=== PATIENT | female | born 1995 | race Caucasian/White ===

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

== ENCOUNTER → 2017-12-27 | Outpatient (REF) | payer OTHER ==
[2017-12-27 13:24] LABS: HEMATOCRIT 40.9 % (36.0-47.0); HEMOGLOBIN 13.7 g/dl (12.0-15.5); MEAN CORPUSCULAR HEMOGLOBIN 28.1 pg (27.0-33.0); MEAN CORPUSCULAR HGB CONC 33.5 g/dl (32.0-36.5); PLATELET COUNT, AUTOMATED 385 10^3/uL (150-450); RED BLOOD COUNT 4.87 10^6/uL (4.00-5.40); RED CELL DISTRIBUTION WIDTH 12.4 % (11.5-14.5); WHITE BLOOD COUNT 7.6 10^3/uL (4.0-10.0)
[2017-12-27 14:01] LABS: HCG, SERUM QUANTITATIVE 14901 MIU/ML
[2017-12-28 09:10] LABS: RUBELLA IgG QUALITATIVE EQUIVOCAL (IMMUNE)
[2017-12-28 09:18] LABS: HBsAg Prenatal NEGATIVE (NEGATIVE)
[2017-12-28 09:40] LABS: HEPATITIS C VIRUS ABY INDEX 0.1 INDEX (<0.8)
[2017-12-28 09:41] LABS: HIV 1&2 SCREEN CENTAUR NEGATIVE (NEGATIVE)
== END ==
LOC: M LAB REF 13:00
DX: O36.80X0 Pregnancy with inconclusive fetal viability, not applicable or unspecified (principal); Z3A.00 Weeks of gestation of pregnancy not specified
CPT/HCPCS: 86762

== ENCOUNTER → 2018-01-25 | Outpatient (REF) | payer OTHER ==
[2018-01-25 16:15] LABS: CHLAMYDIA DNA AMPLIFICATION NEGATIVE (NEGATIVE); GC DNA AMPLIFICATION NEGATIVE (NEGATIVE)
== END ==
LOC: M LAB REF 13:11
DX: Z34.81 Encounter for supervision of other normal pregnancy, first trimester (principal)

== ENCOUNTER 2018-02-24 09:04 | Emergency (ER) | payer OTHER ==
[2018-02-24] MEDS: METOCLOPRAMIDE INJ 10MG/2ML VIAL (J2765) IV (09:53)
[2018-02-24] MEDS: NS 1,000 ML IV (09:53)
[2018-02-24 10:19] LABS: AMORPHOUS SEDIMENT RFX SMALL (NEGATIVE); KETONE, URINE AUTO RFX TRACE mg/dL (NEGATIVE); LEUKOCYTE ESTERASE UR AUTO RFX 3+ (NEGATIVE); MUCUS, URINE RFX SMALL (NEGATIVE); NITRITE, URINE AUTO RFX NEGATIVE (NEGATIVE); RBC, URINE AUTO RFX 0 /HPF (0-3); SPECIFIC GRAVITY UR AUTO RFX 1.025 (1.002-1.035); SQUAM EPITHELIAL CELL UR AURFX 56 /HPF (0-6); WBC, URINE AUTO RFX 33 /HPF (0-3)
== END 2018-02-24 11:17 | disposition home or self-care (01) ==
LOC: M ED 09:04
DX: O23.42 Unspecified infection of urinary tract in pregnancy, second trimester (principal); O99.352 Diseases of the nervous system complicating pregnancy, second trimester; R51 Headache; O21.9 Vomiting of pregnancy, unspecified; Z87.891 Personal history of nicotine dependence; Z3A.14 14 weeks gestation of pregnancy
CPT/HCPCS: J2765

== ENCOUNTER 2018-05-04 23:18 | Emergency (ER) | payer OTHER ==
[~2018-05-04] VITALS: Ht 172.7 cm; Wt 104.5 kg
[~2018-05-04 23:18] MED LIST: KEFL500C17 PO; KETO10TAB PO; REGL10TA6 PO; ZOFR4TAB14 PO
[2018-05-05 01:19] LABS: INFLUENZA A AMPLIFICATION NEGATIVE (NEGATIVE); INFLUENZA B AMPLIFICATION NEGATIVE (NEGATIVE)
[2018-05-05 01:34] VITALS: BP 132/65
== END 2018-05-05 01:44 | disposition home or self-care (01) ==
LOC: M ED 23:18
DX: O99.512 Diseases of the respiratory system complicating pregnancy, second trimester (principal); J02.8 Acute pharyngitis due to other specified organisms; Z3A.24 24 weeks gestation of pregnancy

== ENCOUNTER → 2018-06-19 | Outpatient (CLI) | payer OTHER ==
[2018-06-19 20:28] LABS: HEMATOCRIT 39.4 % (36.0-47.0); HEMOGLOBIN 12.6 g/dl (12.0-15.5); MEAN CORPUSCULAR HEMOGLOBIN 26.5 pg (27.0-33.0); MEAN CORPUSCULAR VOLUME 82.8 fl (80.0-96.0); PLATELET COUNT, AUTOMATED 367 10^3/uL (150-450); RED BLOOD COUNT 4.76 10^6/uL (4.00-5.40); WHITE BLOOD COUNT 12.1 10^3/uL (4.0-10.0)
== END ==
LOC: M LRY 15:09
PROVIDERS: ATTEND Obstetrics & Gynecology
DX: Z36.89 Encounter for other specified antenatal screening (principal)

== ENCOUNTER 2018-07-18 15:47 | Outpatient (CLI) | payer OTHER ==
[~2018-07-18] VITALS: Ht 172.7 cm; Wt 117.5 kg
[~2018-07-18 15:47] MED LIST changes: -PRENTAB9 PO
[2018-07-18 16:20] VITALS: BP 134/73
[2018-07-18] MEDS ORDERED: PRENTAB9 PO (16:23)
[2018-07-18 18:24] VITALS: BP 134/64
== END 2018-07-18 19:08 | disposition home or self-care (01) ==
LOC: M LDO 15:47
PROVIDERS: ATTEND Obstetrics & Gynecology
DX: O26.893 Other specified pregnancy related conditions, third trimester (principal); M54.5 Low back pain; Z3A.35 35 weeks gestation of pregnancy

== ENCOUNTER → 2018-07-18 | Outpatient (REF) | payer OTHER ==
[~2018-07-18] MED LIST changes: +PRENTAB9 PO
== END ==
LOC: M LAB REF 14:14
PROVIDERS: ATTEND Nurse Practitioner Women's Health
DX: Z34.83 Encounter for supervision of other normal pregnancy, third trimester (principal); Z36.85 Encounter for antenatal screening for Streptococcus B

== ENCOUNTER 2018-08-16 14:26 | Inpatient (IN) | payer OTHER ==
[~2018-08-16] VITALS: Ht 172.7 cm; Wt 118.7 kg
[2018-08-16] VITALS (33 sets, daily range): BP systolic 125–175; BP diastolic 56–95
[~2018-08-16 14:26] MED LIST changes: +PRENTAB9 PO
[2018-08-16 15:54] LABS: HEMATOCRIT 44.3 % (36.0-47.0); HEMOGLOBIN 14.1 g/dl (12.0-15.5); MEAN CORPUSCULAR HEMOGLOBIN 26.1 pg (27.0-33.0); MEAN CORPUSCULAR HGB CONC 31.8 g/dl (32.0-36.5); MEAN CORPUSCULAR VOLUME 81.9 fl (80.0-96.0); PLATELET COUNT, AUTOMATED 280 10^3/uL (150-450); RED BLOOD COUNT 5.41 10^6/uL (4.00-5.40); WHITE BLOOD COUNT 11.4 10^3/uL (4.0-10.0)
[2018-08-16] MEDS ORDERED: LACTATED RINGER'S 1000 ML IV STA (15:57)
[2018-08-16] MEDS: LR 1,000 ML IV SCH ×2 (16:31→18:32)
[2018-08-16 16:40] LABS: ALT/SGPT 16 U/L (12-78); BILIRUBIN,TOTAL 0.3 MG/DL (0.2-1.0); CREATININE FOR GFR 0.69 MG/DL (0.55-1.30); GLOMERULAR FILTRATION RATE > 60.0 (>60); LDH LACTATE DEHYDROGENASE 134 U/L (84-246); URIC ACID 6.5 MG/DL (2.6-6.0)
[2018-08-16] MEDS ORDERED: OXYTOCIN 30 UNITS IN 0.9% NaCl 500ML IV BAG (J2590) As Ordered ONE (20:12)
[2018-08-16] MEDS ORDERED: OXYTOCIN DRIP 30 UNITS in APPROPRIATE DILUENT 1 EA IV SCH (20:45)
[2018-08-16] MEDS ORDERED: FENTANYL 2MCG/ML ROPIVACAINE 0.2% IN 0.9% NACL 100ML IVBAG As Ordered ONE (21:29)
[2018-08-16] MEDS ORDERED: EPIDURAL/PCA KEYS XX PRN (22:45)
[2018-08-16] MEDS ORDERED: LACTATED RINGER'S 1000 ML IV PRN (22:45)
[2018-08-16] MEDS ORDERED: NALOXONE INJ 0.4 MG/1 ML VIAL (J2310) IV PRN (22:45)
[2018-08-16] MEDS ORDERED: EPIDURAL COMMENT XX SCH (22:45)
[2018-08-16] MEDS ORDERED: REFRIGERATOR IV KEYS XX PRN (22:45)
[2018-08-16] MEDS ORDERED: FENTANYL/ROPIVACAINE/NACL BAG 100 ML EPIDURAL SCH (22:45)
[2018-08-16] MEDS ORDERED: ONDANSETRON 4MG/2ML VIAL (J2405) IV PRN (22:45)
[2018-08-16] MEDS ORDERED: diphenhydrAMINE INJ 50MG/ML VIAL (J1200) IV PRN (22:45)
[2018-08-16] MEDS ORDERED: ePHEDrine SULFATE 25 MG/5 ML(5MG/ML) SYRINGE IV PRN (22:45)
[2018-08-17] VITALS (18 sets, daily range): BP systolic 122–183; BP diastolic 58–86
[2018-08-17] MEDS ORDERED: fentaNYL 100 MCG/2 ML INJECTION (J3010) As Ordered ONE (01:01)
[2018-08-17 03:17] LABS: CORD GAS ABE V -6.7; CORD GAS HCO3 V 18.5 MEQ/L; CORD GAS O2 SAT V 81.9 %; CORD GAS PCO2 V 36.4 mmHg; CORD GAS PH V 7.323 UNITS; CORD GAS PO2 V 38.7 mmHg; CORD GAS SBC V 18.8 MEQ/L; CORD GAS TCO2 V 19.6 MEQ/L
[2018-08-17 03:20] LABS: CORD GAS ABE A -6.2; CORD GAS HCO3 A 20.3 MEQ/L; CORD GAS O2 SAT A 67.1 %; CORD GAS PCO2 A 43.3 mmHg; CORD GAS PH A 7.288 UNITS; CORD GAS PO2 A 28.7 mmHg; CORD GAS SBC A 18.7 MEQ/L; CORD GAS TCO2 A 21.6 MEQ/L
[2018-08-17] MEDS ORDERED: OXYTOCIN DRIP 30 UNITS in APPROPRIATE DILUENT 1 EA IV SCH (03:21)
[2018-08-17] MEDS ORDERED: RHOGAM 300 MCG (1500 IU) INJ (J2790) IM SCH (03:30)
[2018-08-17] MEDS ORDERED: DIBUCAINE 1% OINTMENT 30GM TOP PRN (03:30)
[2018-08-17] MEDS ORDERED: ANUSOL HC CREAM 30GM TOP PRN (03:30)
[2018-08-17] MEDS ORDERED: METHYLERGONOVINE MALEATE 0.2 MG TAB PO PRN (03:30)
[2018-08-17] MEDS ORDERED: MEASLES,MUMPS,RUBELLA VACCINE INJ (MMR-II) (90707) SC SCH (03:30)
[2018-08-17] MEDS ORDERED: DOCUSATE SODIUM 100 MG CAP PO PRN (03:30)
[2018-08-17] MEDS: ACETAMINOPHEN 500 MG TAB PO PRN ×2 (05:30→11:54)
[2018-08-17] MEDS: IBUPROFEN 800 MG TAB PO PRN ×2 (05:30→21:09)
--- NOTE | 2018-08-17 07:33 | HPE ---
DATE OF ADMISSION: 08/16/2018 Yakelin is a 23-year-old female, 2, para 0-0-1-0 with an expected date of confinement (EDC) of 08/22/2018, estimated gestational age (EGA) of 39-1/7 weeks gestation who presented to the office with complaints of contractions. Upon evaluation, she was found to be in active labor. At this point, a decision was made for admission. Her record reviewed which was essentially unremarkable. She initiated care at approximately 8 weeks gestation. LABS: Blood type is O positive. Rubella immune. Hepatitis negative. HIV negative. GC and chlamydia negative, 1-hour sugar testing was within normal limits. Her GBS is negative. PAST MEDICAL HISTORY: Significant for migraines. PAST SURGICAL HISTORY: Denies. SOCIAL HISTORY: The patient is single. Denies any alcohol, drugs or cigarette smoking. She is however a former smoker and has smoked in the past a half a pack of cigarettes per day. FAMILY HISTORY: Significant for stroke. MEDICATIONS: vitamin. ALLERGIES: No known drug allergies. PHYSICAL EXAMINATION: Obese female in no acute distress. Abdomen: Soft, nontender, nondistended. Extremities: No clubbing, cyanosis or edema. Vaginal Exam: 6 cm dilated, 100%, fetus at -2 station in vertex position. Category one tracing with contractions every 4-5 minutes. ASSESSMENT: 1. Intrauterine at 39 and 1/7 weeks gestation in active labor. 2. GBS negative. PLAN: Admit to labor and delivery. Routine labs sent. Pain management discussed. The patient opts for an epidural. Will continue to monitor. Anticipate delivery.
--- NOTE | 2018-08-17 07:38 | DN ---
DATE OF SERVICE: 08/17/2018 Yakelin is a 23-year-old female 2, para 0-0-1-0 who was admitted at 39-1/7 weeks gestation in active labor. She underwent artificial rupture of membrane, progressed to fully dilated. Delivered a live female in left occiput anterior position. Apgars 9 and 9, birthweight 7 pounds 11 ounces. Placenta delivered spontaneously intact. Three-vessel cord. First-degree midline perineal laceration noted which was repaired using #2-0 chromic. Estimated blood loss 300 mL. Both mother and baby in stable condition.
[2018-08-17] MEDS: PRENATAL VITAMINS CHEWABLE TABLET PO SCH (09:43)
[2018-08-18 06:00] VITALS: BP 126/68
[2018-08-18] MEDS: PRENATAL VITAMINS CHEWABLE TABLET PO SCH (08:07)
[2018-08-18] MEDS: IBUPROFEN 800 MG TAB PO PRN (08:08)
[2018-08-18] MEDS ORDERED: IBUP-1114 PO (14:29)
[2018-08-18] MEDS ORDERED: MAPA500T2 PO (14:29)
== END 2018-08-18 16:56 | disposition home or self-care (01) | DRG 560 ==
LOC: M LDI 14:26 → M OBS 08-17 05:32
PROVIDERS: ADMIT Obstetrics & Gynecology; ATTEND Obstetrics & Gynecology
PROC: 10E0XZZ Delivery of Products of Conception, External Approach (ICD-10-PCS; principal; 2018-08-17)
PROC: 0HQ9XZZ Repair Perineum Skin, External Approach (ICD-10-PCS; 2018-08-17)
DX: O70.0 First degree perineal laceration during delivery (principal); Z37.0 Single live birth; Z3A.39 39 weeks gestation of pregnancy

== ENCOUNTER → 2019-05-04 | Outpatient (REF) | payer OTHER ==
[~2019-05-04] MED LIST changes: +IBUP-1114 PO; +MAPA500T2 PO
[2019-05-04 21:49] LABS: INFLUENZA A AMPLIFICATION NEGATIVE (NEGATIVE); INFLUENZA B AMPLIFICATION NEGATIVE (NEGATIVE)
== END ==
LOC: M LAB REF 13:55
PROVIDERS: ATTEND Physician Assistant
DX: R50.9 Fever, unspecified (principal)

== ENCOUNTER → 2019-06-20 | Outpatient (REF) | payer OTHER ==
[~2019-06-20] MED LIST changes: +BENZ200C70; +GUAI1SOL7 PO; +NAPR-837 PO; +SM N120T
[2019-06-20 22:19] LABS: INFLUENZA A AMPLIFICATION NEGATIVE (NEGATIVE); INFLUENZA B AMPLIFICATION POSITIVE (NEGATIVE)
== END ==
LOC: M LAB REF 21:26
PROVIDERS: ATTEND Physician Assistant
DX: R50.9 Fever, unspecified (principal)

== ENCOUNTER 2019-06-22 10:42 | Emergency (ER) | payer OTHER ==
[~2019-06-22] VITALS: Ht 172.7 cm; Wt 95.2 kg
[~2019-06-22 10:42] MED LIST changes: -BENZ200C70; -GUAI1SOL7 PO; -NAPR-837 PO; -SM N120T
[2019-06-22 11:02] VITALS: BP 144/83
[2019-06-22] MEDS ORDERED: BENZ200C70 (11:05)
[2019-06-22] MEDS ORDERED: SM N120T (11:05)
[2019-06-22] MEDS ORDERED: NAPR-837 PO (12:14)
[2019-06-22] MEDS ORDERED: GUAI1SOL7 PO (12:14)
== END 2019-06-22 12:22 | disposition home or self-care (01) ==
LOC: M ED 10:42
DX: M62.830 Muscle spasm of back (principal); R05 Cough; J11.1 Influenza due to unidentified influenza virus with other respiratory manifestations; F17.200 Nicotine dependence, unspecified, uncomplicated; Z79.899 Other long term (current) drug therapy

== ENCOUNTER → 2019-08-23 | Outpatient (REF) | payer OTHER ==
[~2019-08-23] MED LIST changes: +BENZ200C70; +GUAI1SOL7 PO; +NAPR-837 PO; +SM N120T
[2019-08-23 17:39] LABS: HEMATOCRIT 41.8 % (36.0-47.0); HEMOGLOBIN 13.3 g/dl (12.0-15.5); MEAN CORPUSCULAR HEMOGLOBIN 26.6 pg (27.0-33.0); MEAN CORPUSCULAR HGB CONC 31.8 g/dl (32.0-36.5); MEAN CORPUSCULAR VOLUME 83.6 fl (80.0-96.0); PLATELET COUNT, AUTOMATED 391 10^3/uL (150-450); WHITE BLOOD COUNT 10.9 10^3/uL (4.0-10.0)
[2019-08-23 18:09] LABS: HCG, SERUM QUANTITATIVE 8516 MIU/ML
[2019-08-24 08:10] LABS: RUBELLA IgG QUALITATIVE IMMUNE (IMMUNE)
[2019-08-24 08:39] LABS: HIV 1&2 SCREEN CENTAUR NEGATIVE (NEGATIVE)
[2019-08-24 11:31] LABS: HEPATITIS C VIRUS ABY INDEX 1.9 INDEX (<0.8)
== END ==
LOC: M LAB REF 17:03
PROVIDERS: ATTEND Obstetrics & Gynecology
DX: Z36.89 Encounter for other specified antenatal screening (principal); Z3A.00 Weeks of gestation of pregnancy not specified

== ENCOUNTER → 2019-08-29 | Outpatient (REF) | payer OTHER | LOC: M LAB REF 16:09 | PROVIDERS: ATTEND Obstetrics & Gynecology | DX: R76.0 Raised antibody titer (principal) ==

== ENCOUNTER 2019-09-22 12:10 | Emergency (ER) | payer OTHER ==
[~2019-09-22] VITALS: Ht 172.7 cm; Wt 103.8 kg
[2019-09-22] MEDS ORDERED: PREN29TA4 PO (12:19)
[2019-09-22] MEDS ORDERED: ACETAMINOPHEN 325 MG TAB PO ONE (12:30)
[2019-09-22] MEDS ORDERED: NS 1,000 ML IV ONE (12:30)
[2019-09-22 12:57] LABS: BASO # 0.1 10^3/uL (0.0-0.2); BASO % 0.5 % (0.0-1.0); EOS # 0.1 10^3/uL (0.0-0.5); EOS % 0.6 % (0.0-3.0); HEMATOCRIT 41.2 % (36.0-47.0); HEMOGLOBIN 13.3 g/dl (12.0-15.5); LYMPH # 2.3 10^3/uL (1.5-5.0); LYMPH % 24.1 % (24.0-44.0); MEAN CORPUSCULAR HEMOGLOBIN 26.9 pg (27.0-33.0); MEAN CORPUSCULAR HGB CONC 32.3 g/dl (32.0-36.5); MEAN CORPUSCULAR VOLUME 83.4 fl (80.0-96.0); MONO # 0.7 10^3/uL (0.0-0.8); NEUTROPHILS # 6.4 10^3/uL (1.5-8.5); NEUTROPHILS % 67.3 % (36.0-66.0); PLATELET COUNT, AUTOMATED 346 10^3/uL (150-450); RED BLOOD COUNT 4.94 10^6/uL (4.00-5.40); WHITE BLOOD COUNT 9.5 10^3/uL (4.0-10.0)
[2019-09-22 13:34] LABS: BLOOD UREA NITROGEN 7 MG/DL (7-18); CALCIUM LEVEL 8.6 MG/DL (8.5-10.1); CARBON DIOXIDE LEVEL 26 MEQ/L (21-32); CHLORIDE LEVEL 107 MEQ/L (98-107); CREATININE FOR GFR 0.46 MG/DL (0.55-1.30); GLOMERULAR FILTRATION RATE > 60.0 (>60); GLUCOSE, FASTING 73 MG/DL (70-100); HCG, SERUM QUANTITATIVE 76624 MIU/ML; POTASSIUM SERUM 3.7 MEQ/L (3.5-5.1); SODIUM LEVEL 138 MEQ/L (136-145)
--- NOTE | 2019-09-22 13:52 | REP ---
Clinical: Early with pelvic pain and cramping. Technique: Transabdominal first trimester obstetrical ultrasound with color Doppler evaluation. Findings: Ultrasound examination demonstrates single live early intrauterine . CRL of 3 cm corresponds to 9 week 6 days gestational age with estimated date of delivery 04/20/2020. heart rate equals 170 beats per minute. A small subchorionic hemorrhage is identified measuring 22 x 14 x 21 mm. Impression: Single live early intrauterine at 9 weeks 6 days gestational age. Complete anatomical assessment should be performed at 19-20 weeks. Small subchorionic hemorrhage identified. Electronically Signed by Abel Kc MD 09/22/2019 01:43 P
[2019-09-22 14:13] VITALS: BP 132/62
== END 2019-09-22 14:17 | disposition home or self-care (01) ==
LOC: M ED 12:10
DX: O20.8 Other hemorrhage in early pregnancy (principal); Z87.891 Personal history of nicotine dependence; Z3A.09 9 weeks gestation of pregnancy

== ENCOUNTER → 2019-12-14 | Outpatient (CLI) | payer OTHER ==
[~2019-12-14] MED LIST changes: +PREN29TA4 PO
[2020-01-30 14:31] LABS: APPEARANCE, URINE CLEAR (CLEAR); BACTERIA, URINE AUTO NEGATIVE (NEGATIVE); BILIRUBIN, URINE AUTO NEGATIVE (NEGATIVE); BLOOD, URINE BLOOD NEGATIVE (NEGATIVE); COLOR, URINE YELLOW (YELLOW); GLUCOSE, URINE (UA) AUTO NEGATIVE (NEGATIVE); KETONE, URINE AUTO NEGATIVE (NEGATIVE); LEUKOCYTE ESTERASE, URINE AUTO NEGATIVE (NEGATIVE); MUCUS, URINE SMALL (NEGATIVE); NITRITE, URINE AUTO NEGATIVE (NEGATIVE); PROTEIN, URINE AUTO NEGATIVE (NEGATIVE); RBC, URINE AUTO 1 /HPF (0-3); SPECIFIC GRAVITY URINE AUTO 1.024 (1.002-1.035); SQUAMOUS EPITHELIAL CELL UR AU 12 /HPF (0-6); WBC, URINE AUTO 1 /HPF (0-3)
== END ==
LOC: M LDO 14:42
PROVIDERS: ATTEND Obstetrics & Gynecology
DX: O44.42 Low lying placenta NOS or without hemorrhage, second trimester (principal); R10.9 Unspecified abdominal pain; Z3A.22 22 weeks gestation of pregnancy

== ENCOUNTER → 2020-02-19 | Outpatient (CLI) | payer OTHER ==
[2020-02-19 14:10] LABS: HEMATOCRIT 41.1 % (36.0-47.0); HEMOGLOBIN 12.7 g/dl (12.0-15.5); MEAN CORPUSCULAR HEMOGLOBIN 25.8 pg (27.0-33.0); MEAN CORPUSCULAR HGB CONC 30.9 g/dl (32.0-36.5); MEAN CORPUSCULAR VOLUME 83.5 fl (80.0-96.0); PLATELET COUNT, AUTOMATED 330 10^3/uL (150-450); RED BLOOD COUNT 4.92 10^6/uL (4.00-5.40)
[2020-02-20 09:57] LABS: WHITE BLOOD COUNT 11.1 10^3/uL (4.0-10.0)
== END ==
LOC: M LAB 12:01
PROVIDERS: ATTEND Obstetrics & Gynecology
DX: Z34.83 Encounter for supervision of other normal pregnancy, third trimester (principal); Z3A.00 Weeks of gestation of pregnancy not specified

== ENCOUNTER → 2020-03-18 | Outpatient (REF) | payer OTHER | LOC: M LAB REF 16:13 | PROVIDERS: ATTEND Obstetrics & Gynecology | DX: Z34.83 Encounter for supervision of other normal pregnancy, third trimester (principal) ==

== ENCOUNTER 2020-04-10 06:33 | Inpatient (IN) | payer OTHER ==
[2020-04-10] VITALS (28 sets, daily range): BP systolic 119–206; BP diastolic 56–91
[~2020-04-10] VITALS: Ht 172.7 cm; Wt 118.1 kg
[2020-04-10] MEDS ORDERED: LR 1,000 ML IV SCH (09:12)
[2020-04-10] MEDS ORDERED: LACTATED RINGER'S 1000 ML IV STA (09:12)
[2020-04-10] MEDS ORDERED: OXYTOCIN DRIP 30 UNITS in IV 1 EA IV SCH ×2 (09:15→17:12)
[2020-04-10 10:42] LABS: HEMATOCRIT 40.9 % (36.0-47.0); MEAN CORPUSCULAR HEMOGLOBIN 25.3 pg (27.0-33.0); MEAN CORPUSCULAR HGB CONC 31.8 g/dl (32.0-36.5); MEAN CORPUSCULAR VOLUME 79.6 fl (80.0-96.0); PLATELET COUNT, AUTOMATED 345 10^3/uL (150-450); RED BLOOD COUNT 5.14 10^6/uL (4.00-5.40); WHITE BLOOD COUNT 12.5 10^3/uL (4.0-10.0)
[2020-04-10] MEDS ORDERED: FENTANYL 2MCG/ML ROPIVACAINE 0.2% IN 0.9% NACL 100ML IVBAG As Ordered ONE (14:22)
[2020-04-10] MEDS ORDERED: NALOXONE INJ 0.4MG/1ML VIAL (J2310 PER 1MG) IV PRN (15:00)
[2020-04-10] MEDS ORDERED: EPIDURAL/PCA KEYS XX PRN (15:00)
[2020-04-10] MEDS ORDERED: EPIDURAL COMMENT XX SCH (15:00)
[2020-04-10] MEDS ORDERED: ONDANSETRON 4MG/2ML VIAL IV PRN (15:00)
[2020-04-10] MEDS ORDERED: diphenhydrAMINE 50MG/ML VIAL (J1200) IV PRN (15:00)
[2020-04-10] MEDS ORDERED: REFRIGERATOR IV KEYS XX PRN (15:00)
[2020-04-10] MEDS ORDERED: FENTANYL/ROPIVACAINE/NACL BAG 100 ML EPIDURAL SCH (15:00)
[2020-04-10] MEDS ORDERED: ePHEDrine SULFATE 25 MG/5 ML(5MG/ML) SYRINGE IV PRN (15:00)
[2020-04-10] MEDS ORDERED: LACTATED RINGER'S 1000 ML IV PRN (15:00)
[2020-04-10] MEDS ORDERED: IBUPROFEN 600MG TAB PO PRN (17:15)
[2020-04-10] MEDS ORDERED: DOCUSATE SODIUM 100MG CAPSULE PO PRN (17:15)
[2020-04-10] MEDS ORDERED: ACETAMINOPHEN 500 MG TAB PO PRN (17:15)
[2020-04-10] MEDS ORDERED: METHYLERGONOVINE MALEATE 0.2 MG TAB PO PRN (17:15)
[2020-04-10] MEDS ORDERED: BENZOCAINE 20% HEMORRHOIDAL OINTMENT 28GM TUBE TOP PRN (17:15)
[2020-04-10] MEDS ORDERED: MOM 30ML SUSPENSION UDC PO PRN (17:15)
[2020-04-10] MEDS ORDERED: ACETAMINOPHEN TAB 650MG DOSE (2X325MG) PO PRN (17:15)
[2020-04-10] MEDS ORDERED: MEASLES,MUMPS,RUBELLA VACCINE INJ (MMR-II) (90707) SC SCH (17:15)
[2020-04-10] MEDS ORDERED: RHOGAM 300 MCG (1500 IU) INJ (J2790) IM SCH (17:15)
[2020-04-10 17:36] LABS: CORD GAS ABE A -1.4; CORD GAS O2 SAT A 20.8 %; CORD GAS PCO2 A 59.7 mmHg; CORD GAS PH A 7.273 UNITS; CORD GAS PO2 A 13.3 mmHg; CORD GAS SBC A 21.2 MEQ/L; CORD GAS TCO2 A 28.8 MEQ/L
[2020-04-10 17:38] LABS: CORD GAS ABE V -3.8; CORD GAS HCO3 V 21.6 MEQ/L; CORD GAS O2 SAT V 68.1 %; CORD GAS PCO2 V 40.5 mmHg; CORD GAS PH V 7.345 UNITS; CORD GAS PO2 V 27.2 mmHg; CORD GAS SBC V 20.6 MEQ/L; CORD GAS TCO2 V 22.9 MEQ/L
--- NOTE | 2020-04-10 20:02 | DN ---
DELIVERY NOTE DATE OF DELIVERY: 04/10/2020 TIME OF : DESCRIPTION OF DELIVERY: Nydia is a 25-year-old female, 3, para 1, 0, 1, 1, who was admitted at 38 and 4/7 weeks gestation in active labor. She progressed to fully dilated after Pitocin augmentation, delivered a live male infant in right occiput anterior position. Apgars 9 and 9. weight 7 pounds 15 ounces. Placenta delivered spontaneously intact, three-vessel cord. Perineum, vagina, cervix inspected. First degree midline perineal laceration noted, which was repaired using 2-0 Chromic. Estimated blood loss was 300 cc. Both mother and baby in stable condition.
--- NOTE | 2020-04-10 20:18 | HPE ---
HISTORY AND PHYSICAL DATE OF ADMISSION: 04/10/2020 HISTORY OF PRESENT ILLNESS: Nydia is a 25-year-old female, 3, para 1, 0, 1, 1 with an EDC of 04/20/2020, EGA 38 and 4/7 weeks gestation, who presented to labor and delivery with complaints of contractions every 4-5 minutes. After an extensive monitoring, she was found to be in labor. At this point, decision was made for admission. Her record was reviewed, which was essentially unremarkable. LAB: Blood type O+. Rubella immune. Hepatitis negative. HIV negative. GC/Chlamydia negative. One-hour sugar testing was within normal limits. Her GBS is negative. PAST MEDICAL HISTORY: Significant for migraine. PAST SURGICAL HISTORY: Denies. SOCIAL HISTORY: Denies any alcohol, drug or cigarette smoking. REVIEW OF SYSTEMS: Unremarkable. MEDICATIONS: vitamin. ALLERGIES: No known drug allergies. PHYSICAL EXAMINATION: An obese female in no acute distress. Abdomen: Soft, nontender, non-distended. Extremities: No clubbing, cyanosis or edema. Vaginal exam: 4 cm dilated, 90% effaced, fetus at -3 station and in vertex position. Tracing reviewed. Category 1 tracing with contractions every 4-5 minutes. ASSESSMENT: 1. Intrauterine at 38 and 4/7 weeks gestation in labor. 2. GBS negative. PLAN: Admit to labor and delivery. Routine labs sent. Pain management discussed. Pt opts for epidural. Will continue to monitor and anticipate delivery. MTDD
[2020-04-10] MEDS: DOCUSATE SODIUM 100MG CAPSULE PO SCH (21:25)
[2020-04-11 05:30] VITALS: BP 133/66
[2020-04-11] MEDS: IBUPROFEN 800 MG TAB PO PRN ×2 (05:36→20:05)
--- NOTE | 2020-04-11 07:57 | IPNPDOC ---
Progress Note Date of Service: Apr 11, 2020 Day#: 1 Progress Note SUBJECT: Doing well without complaints. Ambulating, voiding and pain is well- controlled. Reports minimal lochia. OBJECTIVE: VITAL SIGNS: Within normal limits, afebrile. Alert and oriented times three. Abdomen: Fundus firm at U-2. Soft, NTTP. Ext: neg calf tenderness. ASSESSMENT: day #1 status post . Recovering in stable condition. PLAN: 1. Continue routine care 2. Discharge plans for tomorrow VS, I&O, 24H, Fishbone Vital Signs/I&O Vital Signs Date Time Temp Pulse Resp B/P (MAP) Pulse Ox O2 Delivery O2 Flow Rate FiO2 04/11/20 05:30 99.1 61 18 133/66 (88) 95 Room Air I&O- Last 24 Hours up to 6 AM 04/11/20 06:00 Intake Total 1000 ml Output Total 300 ml Balance 700 ml Laboratory Data 24H LABS Laboratory Tests 2 04/10/20 09:34: Serology Scanned Report Hepatitis B Testing 04/10/20 10:21: Nucleated Red Blood Cells % (auto) 0.0, Syphilis Serology NONREACTIVE 04/10/20 17:26: Cord Arterial Blood pH 7.273, Cord Arterial Blood PCO2 59.7, Cord Arterial Blood PO2 13.3, Cord Arterial Blood HCO3 27.0, Cord Arterial Blood Total CO2 28.8, Cord Arterial Blood Base Excess -1.4, Cord Arterial Base Excess (Standard 21.2, Cord Arterial Bld Oxygen Saturation 20.8, Cord Venous Blood pH 7.345, Cord Venous Blood PCO2 40.5, Cord Venous Blood PO2 27.2, Cord Venous Blood HCO3 21.6, Cord Venous Blood Total CO2 22.9, Cord Venous Base Excess (Actual) -3.8, Cord Venous Base Excess (Standard) 20.6, Cord Venous Blood Oxygen Saturation 68.1 CBC/BMP Laboratory Tests 04/10/20 10:21 HUMBLE TEJEDA MD. Apr 11, 2020 07:57
[2020-04-11] MEDS: PRENATAL VITAMINS CHEWABLE TABLET PO SCH (08:45)
[2020-04-11] MEDS: DOCUSATE SODIUM 100MG CAPSULE PO SCH ×2 (08:45→20:04)
[2020-04-11 18:04] VITALS: BP 141/69
[2020-04-12 06:00] VITALS: BP 136/82
[2020-04-12] MEDS: PRENATAL VITAMINS CHEWABLE TABLET PO SCH (09:01)
[2020-04-12] MEDS: DOCUSATE SODIUM 100MG CAPSULE PO SCH (09:01)
[2020-04-12] MEDS: IBUPROFEN 800 MG TAB PO PRN (09:01)
== END 2020-04-12 13:30 | disposition home or self-care (01) | DRG 560 ==
LOC: M LDO 06:33 → M LDI 09:14 → M OBS 20:00
PROVIDERS: ADMIT Obstetrics & Gynecology; ATTEND Obstetrics & Gynecology
PROC: 10E0XZZ Delivery of Products of Conception, External Approach (ICD-10-PCS; principal; 2020-04-10)
PROC: 0HQ9XZZ Repair Perineum Skin, External Approach (ICD-10-PCS; 2020-04-10)
DX: O70.0 First degree perineal laceration during delivery (principal); Z3A.38 38 weeks gestation of pregnancy; Z37.0 Single live birth

== ENCOUNTER 2020-10-21 12:54 | Emergency (ER) | payer OTHER ==
[~2020-10-21] VITALS: Ht 172.7 cm; Wt 125.1 kg
[2020-10-21 12:55] VITALS: BP 151/83
[2020-10-21] MEDS ORDERED: JUNE1.5T (13:05)
== END 2020-10-21 15:32 | disposition left against medical advice (07) ==
LOC: M ED 12:54
DX: Z53.21 Procedure and treatment not carried out due to patient leaving prior to being seen by health care provider (principal)

== ENCOUNTER → 2022-05-04 | Outpatient (CLI) | payer OTHER ==
[~2022-05-04] MED LIST changes: +JUNE1.5T
== END ==
LOC: M RAD 14:26
PROVIDERS: ATTEND Physician Assistant Medical
DX: M25.572 Pain in left ankle and joints of left foot (principal)

== ENCOUNTER → 2022-08-05 | Outpatient (REF) | payer OTHER ==
[2022-08-05 18:59] LABS: BASO # 0.1 10^3/uL (0.0-0.2); BASO % 0.4 % (0.0-1.0); EOS # 0.2 10^3/uL (0.0-0.5); EOS % 1.5 % (0.0-3.0); HEMATOCRIT 40.7 % (36.0-47.0); HEMOGLOBIN 12.4 g/dl (12.0-15.5); LYMPH # 3.5 10^3/uL (1.5-5.0); MEAN CORPUSCULAR HEMOGLOBIN 24.4 pg (27.0-33.0); MEAN CORPUSCULAR HGB CONC 30.5 g/dl (32.0-36.5); MONO # 0.6 10^3/uL (0.0-0.8); MONO % 5.4 % (2.0-8.0); NEUTROPHILS # 6.9 10^3/uL (1.5-8.5); NEUTROPHILS % 61.4 % (36.0-66.0); PLATELET COUNT, AUTOMATED 396 10^3/uL (150-450); RED BLOOD COUNT 5.09 10^6/uL (4.00-5.40); WHITE BLOOD COUNT 11.3 10^3/uL (4.0-10.0)
[2022-08-05 19:11] LABS: HEMOGLOBIN A1c 5.1 % (4.0-6.0)
[2022-08-05 19:33] LABS: ALBUMIN 3.9 G/DL (3.2-5.2); ALKALINE PHOSPHATASE 97 U/L (46-116); ALT/SGPT 17 U/L (7.0-40); AST/SGOT 20 U/L (<34); BILIRUBIN,TOTAL 0.6 MG/DL (0.3-1.2); BLOOD UREA NITROGEN 9 MG/DL (9-23); CALCIUM LEVEL 9.2 MG/DL (8.5-10.1); CARBON DIOXIDE LEVEL 26 MMOL/L (20-31); CHLORIDE LEVEL 104 MMOL/L (98-107); CHOLESTEROL LEVEL 157 MG/DL (<200); CHOLESTEROL RISK RATIO 3.06 (<5); CREATININE FOR GFR 0.61 MG/DL (0.55-1.30); GLOMERULAR FILTRATION RATE > 60.0 (>60); GLUCOSE, FASTING 68 MG/DL (60-100); HDL CHOLESTEROL 51.2 MG/DL (>40); NON-HDL-C 105.8 MG/DL; POTASSIUM SERUM 4.5 MMOL/L (3.5-5.1); SODIUM LEVEL 139 MMOL/L (136-145); THYROID STIMULATING HORMONE 1.694 uIU/ML (0.55-4.78); TOTAL PROTEIN 6.4 G/DL (5.7-8.2); TRIGLYCERIDES LEVEL 49 MG/DL (<150)
== END ==
LOC: M LAB REF 17:24
PROVIDERS: ATTEND Nurse Practitioner Family
DX: E66.3 Overweight (principal); E55.9 Vitamin D deficiency, unspecified; R53.83 Other fatigue

== ENCOUNTER 2022-09-07 18:41 | Emergency (ER) | payer OTHER ==
[~2022-09-07] VITALS: Ht 175.3 cm; Wt 122.9 kg
[2022-09-07] MEDS ORDERED: GI COCKTAIL 50ML BTL(HYOSCYAMINE/MAALOX/LIDOCAINE VISCOUS)(1:3:1) PO ONE (19:30)
[2022-09-07] MEDS ORDERED: ONDANSETRON 4MG 2ML VIAL IV ONE (19:30)
[2022-09-07] MEDS ORDERED: KETOROLAC 30 MG/ML 1ML VIAL IV ONE (19:30)
[2022-09-07] MEDS ORDERED: SUCRALFATE 1 GM TAB PO ONE (19:30)
[2022-09-07] MEDS ORDERED: NS 1,000 ML IV ONE (19:30)
[2022-09-07 19:55] LABS: BASO % 0.4 % (0.0-1.0); EOS # 0.1 10^3/uL (0.0-0.5); EOS % 0.8 % (0.0-3.0); HEMATOCRIT 40.8 % (36.0-47.0); HEMOGLOBIN 12.8 g/dl (12.0-15.5); LYMPH # 3.6 10^3/uL (1.5-5.0); LYMPH % 31.6 % (24.0-44.0); MEAN CORPUSCULAR HGB CONC 31.4 g/dl (32.0-36.5); MEAN CORPUSCULAR VOLUME 79.7 fl (80.0-96.0); MONO # 0.5 10^3/uL (0.0-0.8); MONO % 4.2 % (2.0-8.0); NEUTROPHILS # 7.2 10^3/uL (1.5-8.5); NEUTROPHILS % 62.6 % (36.0-66.0); PLATELET COUNT, AUTOMATED 375 10^3/uL (150-450); RED BLOOD COUNT 5.12 10^6/uL (4.00-5.40); WHITE BLOOD COUNT 11.4 10^3/uL (4.0-10.0)
[2022-09-07 20:23] LABS: LIPASE 23 U/L (12-53)
[2022-09-07 20:25] LABS: ALBUMIN 3.8 G/DL (3.2-5.2); ALKALINE PHOSPHATASE 96 U/L (46-116); ALT/SGPT 21 U/L (7.0-40); AST/SGOT < 8 U/L (<34); BILIRUBIN,DIRECT 0.1 MG/DL (<0.4); BILIRUBIN,TOTAL 0.4 MG/DL (0.3-1.2); TOTAL PROTEIN 6.4 G/DL (5.7-8.2)
[2022-09-07] MEDS ORDERED: OMEP1CAP73 PO (23:28)
[2022-09-07] MEDS ORDERED: CARA1TAB6 PO (23:28)
[2022-09-08 00:04] VITALS: BP 140/83
== END 2022-09-08 00:06 | disposition home or self-care (01) ==
LOC: M ED 18:41
DX: R10.11 Right upper quadrant pain (principal); R10.13 Epigastric pain; K80.20 Calculus of gallbladder without cholecystitis without obstruction; Z79.899 Other long term (current) drug therapy
CPT/HCPCS: 76705; 80047; 80076; 83690; 84702; 85025; 96361; 96374; 96375; 99284; J1885; J2405

== ENCOUNTER 2022-09-27 08:11 | Emergency (ER) | payer OTHER ==
[~2022-09-27] VITALS: Ht 172.7 cm; Wt 121.9 kg
[~2022-09-27 08:11] MED LIST changes: +CARA1TAB6 PO; +OMEP1CAP73 PO
[2022-09-27] MEDS ORDERED: NS 1,000 ML IV ONE (08:40)
[2022-09-27] MEDS ORDERED: MORPHINE 4 MG/ML 1ML VIAL IV ONE (08:45)
[2022-09-27] MEDS ORDERED: ONDANSETRON 4MG 2ML VIAL IV ONE (08:45)
[2022-09-27 09:23] LABS: BASO # 0.1 10^3/uL (0.0-0.2); BASO % 0.6 % (0.0-1.0); EOS # 0.3 10^3/uL (0.0-0.5); EOS % 2.8 % (0.0-3.0); HEMATOCRIT 41.8 % (36.0-47.0); HEMOGLOBIN 12.9 g/dl (12.0-15.5); LYMPH # 2.8 10^3/uL (1.5-5.0); LYMPH % 31.4 % (24.0-44.0); MEAN CORPUSCULAR HGB CONC 30.9 g/dl (32.0-36.5); MEAN CORPUSCULAR VOLUME 80.9 fl (80.0-96.0); MONO # 0.5 10^3/uL (0.0-0.8); MONO % 5.3 % (2.0-8.0); NEUTROPHILS # 5.3 10^3/uL (1.5-8.5); NEUTROPHILS % 59.7 % (36.0-66.0); PLATELET COUNT, AUTOMATED 412 10^3/uL (150-450); RED BLOOD COUNT 5.17 10^6/uL (4.00-5.40); WHITE BLOOD COUNT 8.9 10^3/uL (4.0-10.0)
[2022-09-27 09:28] LABS: APPEARANCE, URINE HAZY (CLEAR); BACTERIA, URINE AUTO 1+ (NEGATIVE); BILIRUBIN, URINE AUTO NEGATIVE (NEGATIVE); BLOOD, URINE BLOOD NEGATIVE (NEGATIVE); COLOR, URINE YELLOW (YELLOW); GLUCOSE, URINE (UA) AUTO NEGATIVE (NEGATIVE); KETONE, URINE AUTO NEGATIVE (NEGATIVE); LEUKOCYTE ESTERASE, URINE AUTO 1+ (NEGATIVE); NITRITE, URINE AUTO NEGATIVE (NEGATIVE); PROTEIN, URINE AUTO NEGATIVE (NEGATIVE); RBC, URINE AUTO 1 /HPF (0-3); SPECIFIC GRAVITY URINE AUTO 1.023 (1.002-1.035); SQUAMOUS EPITHELIAL CELL UR AU 6 /HPF (0-6); WBC, URINE AUTO 5 /HPF (0-3)
[2022-09-27 09:48] LABS: LIPASE 46 U/L (12-53)
[2022-09-27 09:49] LABS: ALBUMIN 3.8 G/DL (3.2-5.2); ALKALINE PHOSPHATASE 111 U/L (46-116); ALT/SGPT 68 U/L (7.0-40); AST/SGOT 40 U/L (<34); BILIRUBIN,DIRECT 0.1 MG/DL (<0.4); BILIRUBIN,TOTAL 0.3 MG/DL (0.3-1.2); BLOOD UREA NITROGEN 11 MG/DL (9-23); CALCIUM LEVEL 9.2 MG/DL (8.5-10.1); CARBON DIOXIDE LEVEL 27 MMOL/L (20-31); CHLORIDE LEVEL 107 MMOL/L (98-107); CREATININE FOR GFR 0.68 MG/DL (0.55-1.30); GLOMERULAR FILTRATION RATE > 60.0 (>60); GLUCOSE, FASTING 89 MG/DL (60-100); POTASSIUM SERUM 4.5 MMOL/L (3.5-5.1); SODIUM LEVEL 139 MMOL/L (136-145); TOTAL PROTEIN 6.5 G/DL (5.7-8.2)
[2022-09-27 11:11] VITALS: BP 115/56
== END 2022-09-27 11:10 | disposition home or self-care (01) ==
LOC: M ED 08:11
DX: K80.50 Calculus of bile duct without cholangitis or cholecystitis without obstruction (principal); K21.9 Gastro-esophageal reflux disease without esophagitis; Z79.899 Other long term (current) drug therapy
CPT/HCPCS: 76705; 80048; 80076; 81001; 83690; 84702; 85025; 96361; 96374; 96375; 99284; J2405

== ENCOUNTER → 2022-11-17 | Outpatient (CLI) | payer OTHER | LOC: M RAD 11:23 | PROVIDERS: ATTEND Surgery | DX: R10.11 Right upper quadrant pain (principal) | CPT/HCPCS: 78227; A9537 ==

== ENCOUNTER 2022-12-10 10:10 | Day surgery (SDC) | payer OTHER ==
[~2022-12-10] VITALS: Ht 172.7 cm; Wt 120.2 kg
[~2022-12-10 10:10] MED LIST changes: +CELE10TA PO; +HYDR-3713 PO
[2022-12-10] MEDS ORDERED: LR 1,000 ML IV SCH ×2 (11:00→13:55)
[2022-12-10] MEDS ORDERED: ONDANSETRON 4MG 2ML VIAL As Ordered ONE (11:22)
[2022-12-10] MEDS ORDERED: MIDAZOLAM INJ 2MG/2ML VIAL As Ordered ONE (11:22)
[2022-12-10] MEDS ORDERED: propofoL 200 MG/20 ML VIAL As Ordered ONE (11:22)
[2022-12-10] MEDS ORDERED: LIDOCAINE 2% 100MG/5ML SDV (FOR ANES.) As Ordered ONE (11:22)
[2022-12-10] MEDS ORDERED: ROCURONIUM BROMIDE 50MG/5ML VIAL As Ordered ONE (11:22)
[2022-12-10] MEDS ORDERED: fentaNYL 100 MCG/2 ML INJECTION As Ordered ONE ×2 (11:22→13:19)
[2022-12-10] MEDS ORDERED: SCOPOLAMINE 1MG TRANSDERMAL PATCH TOP ONE (11:35)
[2022-12-10] MEDS ORDERED: ACETAMINOPHEN 1000MG 100ML IV BAG As Ordered ONE (13:12)
[2022-12-10] MEDS ORDERED: KETOROLAC 60MG 2ML VIAL As Ordered ONE (13:17)
[2022-12-10] MEDS ORDERED: SUGAMMADEX SODIUM 500 MG/5 ML VIAL (BRIDION) As Ordered ONE (13:17)
[2022-12-10] MEDS ORDERED: oxyCODONE 5MG TAB PO PRN (13:55)
[2022-12-10] MEDS ORDERED: HYDROMORPHONE HCL 0.5 MG/ 0.5 ML SYRINGE IV PRN (13:55)
[2022-12-10] MEDS ORDERED: ONDANSETRON 4MG 2ML VIAL IV PRN (13:55)
[2022-12-10] MEDS ORDERED: NORCO, ANEXSIA 5/325MG TABLET (HYDROcodone/ACETAMINOPHEN) PO PRN (14:10)
[2022-12-10] MEDS: fentaNYL 100 MCG/2 ML INJECTION IV PRN ×4 (14:13→14:31)
[2022-12-10 15:05] VITALS: BP 129/60; TEMP 98.3; O2SAT 99
== END 2022-12-10 15:40 | disposition home or self-care (01) ==
LOC: M SDC 10:10
PROVIDERS: ATTEND Surgery
DX: K80.10 Calculus of gallbladder with chronic cholecystitis without obstruction (principal); G43.909 Migraine, unspecified, not intractable, without status migrainosus; F43.10 Post-traumatic stress disorder, unspecified; F17.200 Nicotine dependence, unspecified, uncomplicated; F41.9 Anxiety disorder, unspecified; F32.A Depression, unspecified; F42.9 Obsessive-compulsive disorder, unspecified; Z79.899 Other long term (current) drug therapy
CPT/HCPCS: 47562; 81025; 88304; J0131; J0665; J1100; J1885; J2250; J2405; J3010; S2900

== ENCOUNTER → 2023-05-30 | Outpatient (REF) | payer OTHER | LOC: M LAB REF 11:30 | PROVIDERS: ATTEND Physician Assistant Medical | DX: J02.9 Acute pharyngitis, unspecified (principal) ==

== ENCOUNTER → 2023-09-22 | Outpatient (REF) | payer OTHER ==
[2023-09-22 17:22] LABS: BASO # 0.1 10^3/uL (0.0-0.2); BASO % 0.7 % (0.0-1.0); EOS # 0.4 10^3/uL (0.0-0.5); EOS % 4.4 % (0.0-3.0); HEMATOCRIT 41.6 % (36.0-47.0); LYMPH # 3.3 10^3/uL (1.5-5.0); LYMPH % 34.1 % (24.0-44.0); MEAN CORPUSCULAR HEMOGLOBIN 25.7 pg (27.0-33.0); MEAN CORPUSCULAR HGB CONC 31.3 g/dl (32.0-36.5); MEAN CORPUSCULAR VOLUME 82.4 fl (80.0-96.0); MONO # 0.5 10^3/uL (0.0-0.8); MONO % 5.3 % (2.0-8.0); NEUTROPHILS # 5.3 10^3/uL (1.5-8.5); NEUTROPHILS % 55.2 % (36.0-66.0); PLATELET COUNT, AUTOMATED 401 10^3/uL (150-450); RED BLOOD COUNT 5.05 10^6/uL (4.00-5.40); WHITE BLOOD COUNT 9.6 10^3/uL (4.0-10.0)
[2023-09-22 17:36] LABS: BLOOD UREA NITROGEN 12 MG/DL (9-23); CALCIUM LEVEL 9.1 MG/DL (8.5-10.1); CARBON DIOXIDE LEVEL 24 MMOL/L (20-31); CHLORIDE LEVEL 108 MMOL/L (98-107); CREATININE FOR GFR 0.75 MG/DL (0.55-1.30); GLOMERULAR FILTRATION RATE > 60.0 (>60); GLUCOSE, FASTING 82 MG/DL (60-100); POTASSIUM SERUM 4.3 MMOL/L (3.5-5.1); SODIUM LEVEL 139 MMOL/L (136-145)
[2023-09-22 17:37] LABS: THYROID STIMULATING HORMONE 2.301 uIU/ML (0.55-4.78); TOTAL 25(OH) VITAMIN D 14.4 NG/ML (20.0-100.0)
== END ==
LOC: M LAB REF 16:32
PROVIDERS: ATTEND Nurse Practitioner Family
DX: E55.9 Vitamin D deficiency, unspecified (principal); R51.9 Headache, unspecified; E66.3 Overweight

== ENCOUNTER → 2024-02-03 | Outpatient (REF) | payer OTHER ==
[2024-02-03 18:38] LABS: BLOOD UREA NITROGEN 10 MG/DL (9-23); CALCIUM LEVEL 9.1 MG/DL (8.5-10.1); CARBON DIOXIDE LEVEL 23 MMOL/L (20-31); CHLORIDE LEVEL 111 MMOL/L (98-107); CREATININE FOR GFR 0.76 MG/DL (0.55-1.30); GLOMERULAR FILTRATION RATE > 60.0 (>60); GLUCOSE, FASTING 80 MG/DL (60-100); POTASSIUM SERUM 4.5 MMOL/L (3.5-5.1); SODIUM LEVEL 139 MMOL/L (136-145)
[2024-02-03 18:41] LABS: THYROID STIMULATING HORMONE 2.422 uIU/ML (0.55-4.78)
== END ==
LOC: M LAB REF 16:41
PROVIDERS: ATTEND Nurse Practitioner Family
DX: F41.9 Anxiety disorder, unspecified (principal)

== ENCOUNTER → 2024-02-29 | Outpatient (REF) | payer OTHER | LOC: M LAB REF 12:13 | PROVIDERS: ATTEND Physician Assistant | DX: R05.9 Cough, unspecified (principal) ==

== ENCOUNTER → 2024-06-12 | Outpatient (CLI) | payer OTHER ==
[2024-06-12 11:23] LABS: FOLATE 17.9 NG/ML (>5.4)
[2024-06-12 11:24] LABS: BLOOD UREA NITROGEN 12 MG/DL (9-23); CALCIUM LEVEL 9.1 MG/DL (8.5-10.1); CARBON DIOXIDE LEVEL 23 MMOL/L (20-31); CHLORIDE LEVEL 111 MMOL/L (98-107); CREATININE FOR GFR 0.76 MG/DL (0.55-1.30); GLOMERULAR FILTRATION RATE > 60.0 (>60); GLUCOSE, FASTING 88 MG/DL (60-100); POTASSIUM SERUM 3.9 MMOL/L (3.5-5.1); SODIUM LEVEL 141 MMOL/L (136-145)
[2024-06-12 11:25] LABS: THYROID STIMULATING HORMONE 2.195 uIU/ML (0.55-4.78)
[2024-06-12 11:26] LABS: VITAMIN B12 LEVEL 499 PG/ML (211-911)
== END ==
LOC: M EKG 09:53
PROVIDERS: ATTEND Nurse Practitioner Family
DX: R00.2 Palpitations (principal); R00.1 Bradycardia, unspecified

== ENCOUNTER → 2024-08-25 | Outpatient (CLI) | payer OTHER | LOC: M RAD 13:59 | PROVIDERS: ATTEND Nurse Practitioner Family | DX: G43.011 Migraine without aura, intractable, with status migrainosus (principal); R55 Syncope and collapse; R20.2 Paresthesia of skin ==

== ENCOUNTER → 2024-12-19 | Outpatient (CLI) | payer OTHER | LOC: M EKG 10:54 | PROVIDERS: ATTEND Internal Medicine Cardiovascular Disease | DX: R00.2 Palpitations (principal); Z53.9 Procedure and treatment not carried out, unspecified reason ==

== ENCOUNTER → 2025-03-12 | Outpatient (CLI) | payer OTHER | LOC: M CARPUL 13:48 | PROVIDERS: ATTEND Internal Medicine Cardiovascular Disease | DX: R00.2 Palpitations (principal); R00.1 Bradycardia, unspecified ==

== ENCOUNTER → 2025-03-25 | Outpatient (CLI) | payer OTHER ==
[2025-03-25 10:57] LABS: CHOLESTEROL LEVEL 163.0 MG/DL (<200); CHOLESTEROL RISK RATIO 2.99 (<5); LDL CHOLESTEROL 97.7 MG/DL (<100); NON-HDL-C 108.5 MG/DL; TRIGLYCERIDES LEVEL 54.0 MG/DL (<150)
== END ==
LOC: M LAB 09:34
PROVIDERS: ATTEND Internal Medicine Cardiovascular Disease
DX: E78.5 Hyperlipidemia, unspecified (principal)

== ENCOUNTER → 2025-04-03 | Outpatient (CLI) | payer OTHER | LOC: M CARPUL 09:01 | PROVIDERS: ATTEND Internal Medicine Cardiovascular Disease | DX: R00.2 Palpitations (principal) ==

== ENCOUNTER 2025-04-26 12:05 | Emergency (ER) | payer OTHER ==
[~2025-04-26] VITALS: Ht 172.7 cm; Wt 91.6 kg
[2025-04-26 13:31] LABS: ALT/SGPT 12 U/L (7.0-40); AST/SGOT 14 U/L (<34); CALCIUM LEVEL 8.8 MG/DL (8.5-10.1); CARBON DIOXIDE LEVEL 23 MMOL/L (20-31); CHLORIDE LEVEL 106 MMOL/L (98-107); CREATININE FOR GFR 0.58 MG/DL (0.55-1.30); GLOMERULAR FILTRATION RATE > 90.0 (>60); POTASSIUM SERUM 3.7 MMOL/L (3.5-5.1); SODIUM LEVEL 139 MMOL/L (136-145)
[2025-04-26 13:37] LABS: KETONE, URINE AUTO RFX 2+ mg/dL (NEGATIVE); MUCUS, URINE RFX SMALL (NEGATIVE); NITRITE, URINE AUTO RFX NEGATIVE (NEGATIVE); RBC, URINE AUTO RFX 1 /HPF (0-3); SQUAM EPITHELIAL CELL UR AURFX 22 /HPF (0-6); WBC, URINE AUTO RFX 7 /HPF (0-3)
[2025-04-26 13:42] LABS: BASO # 0.1 10^3/uL (0.0-0.2); BASO % 0.7 % (0.0-1.0); EOS # 0.1 10^3/uL (0.0-0.5); EOS % 0.7 % (0.0-3.0); LYMPH # 2.5 10^3/uL (1.5-5.0); LYMPH % 26.0 % (24.0-44.0); MONO # 0.6 10^3/uL (0.0-0.8); MONO % 6.7 % (2.0-8.0); NEUTROPHILS # 6.3 10^3/uL (1.5-8.5); NEUTROPHILS % 65.7 % (36.0-66.0); PLATELET COUNT, AUTOMATED 401 10^3/uL (150-450)
[2025-04-26 14:25] LABS: LEUKOCYTE ESTERASE UR AUTO RFX 1+ (NEGATIVE)
[2025-04-26] MEDS: NS (Normal Saline) 0.9% 1,000 ML IV ONE (17:06)
[2025-04-26] MEDS: ONDANSETRON 4MG/2ML VIAL IV ONE (17:06)
[2025-04-26] MEDS: FAMOTIDINE 20 MG/2 ML VIAL IVP ONE (17:45)
[2025-04-26 19:00] VITALS: BP 119/58; O2SAT 100
[2025-04-26 19:09] VITALS: TEMP 97.6
[2025-04-26] MEDS ORDERED: PYRI25TA2 PO (19:12)
[2025-04-26] MEDS ORDERED: PEPC1TAB5 PO (19:12)
[2025-04-26] MEDS ORDERED: UNIS25TA5 PO (19:12)
== END 2025-04-26 19:36 | disposition home or self-care (01) ==
LOC: M ED 12:05
DX: O21.0 Mild hyperemesis gravidarum (principal); Z3A.01 Less than 8 weeks gestation of pregnancy; Z79.1 Long term (current) use of non-steroidal anti-inflammatories (NSAID); Z79.899 Other long term (current) drug therapy
CPT/HCPCS: 76801; 76817; 80048; 80076; 81001; 83690; 84702; 85025; 86850; 86900; 86901; 87086; 93976; 96361; 96374; 96375; 99284; J1308; J2405